=== PATIENT | female | born 1985 | race Caucasian/White ===

== ENCOUNTER 2021-10-07 15:37 | Inpatient (IN) ==
[2021-10-07] MEDS ORDERED: ONDANSETRON 4 MG/2 ML VIAL IV PRN ×2 (17:15→19:50)
[2021-10-07] MEDS ORDERED: ceFAZolin 2,000 MG/50 ML DUPLEX IV ONE (17:19)
[2021-10-07] MEDS ORDERED: FAMOTIDINE 20 MG/2 ML VIAL IV ONE (17:30)
[2021-10-07] MEDS ORDERED: LACTATED RINGERS 1,000 ML IV SCH ×2 (17:30→20:00)
[2021-10-07] MEDS ORDERED: CITRIC ACID/SODIUM CITRATE 30 ML UDCUP PO ONE (17:30)
[2021-10-07 17:49] LABS: Basophils # 0.1 10*3/uL (0.0-0.2); Basophils % 0.6 % (0.0-0.8); Eosinophils # 0.1 10*3/uL (0.0-0.87); Eosinophils % 1.1 % (0.00-10.9); Hematocrit 32.1 VOL% (35.7-47.0); Hemoglobin 9.8 GM/DL (12.0-16.0); Immature Granulocytes % 0.8 %; Immature Granulocytes Absolute 0.08 #; Lymphocytes # 1.8 10*3/uL (1.4-4.0); Lymphocytes % 18.7 % (21.3-54.2); Mean Corpuscular HGB Conc 30.5 GM/DL (32-36); Mean Corpuscular Volume 81.3 FL (87-102); Mean Platelet Volume 10.6 FL (9.6-12.0); Monocytes % 7.2 % (1.7-12.7); Neutrophils % 71.6 % (38.7-73.9); Platelet Count 240 T/CUMM (130-400); Red Blood Count 3.95 MC/CUMM (3.8-5.5); Red Cell Distribution Width 16.2 % (9.3-17.3); White Blood Count 9.7 T/CUMM (4-12)
[2021-10-07 18:18] LABS: Alanine Aminotransferase 23 U/L (13-56); Albumin 2.7 G/DL (3.4-5.0); Alkaline Phosphatase 160 U/L (45-117); Aspartate Amino Transferase 24 U/L (0-37); Bilirubin,Total < 0.39 MG/DL (0.20-1.00); Blood Urea Nitrogen 6 MG/DL (7-18); Calcium 8.4 MG/DL (8.5-10.1); Carbon Dioxide 26 MMOL/L (21-32); Estimated Glom Filtration Rate 132 ML/MIN; Glucose 71 MG/DL (74-106); Potassium 3.9 MMOL/L (3.5-5.1); Sodium 136 MMOL/L (136-145); Total Protein 6.9 G/DL (6.4-8.2)
[2021-10-07] MEDS ORDERED: BUPIVACAINE SPINAL 0.75% 2 ML AMP SPINAL ONE (18:42)
[2021-10-07] MEDS ORDERED: MIDAZOLAM 2 MG/2 ML VIAL ONE ×2 (19:01→19:06)
[2021-10-07] MEDS ORDERED: miSOPROStoL 200 MCG TABLET ONE (19:03)
[2021-10-07] MEDS ORDERED: TRANEXAMIC ACID 1,000 MG/10 ML VIAL ONE (19:03)
[2021-10-07] MEDS ORDERED: OXYTOCIN/LR 20 UNIT/1,000 ML BAG IV ONE ×2 (19:03→19:50)
[2021-10-07] MEDS ORDERED: SODIUM CHLORIDE 0.9% 0 ML IV ONE (19:03)
[2021-10-07] MEDS ORDERED: CARBOPROST TROMETHAMINE 250 MCG/ML AMP IM ONE (19:04)
[2021-10-07] MEDS ORDERED: METHYLERGONOVINE 0.2 MG/1 ML AMP ONE (19:04)
[2021-10-07] MEDS ORDERED: propofoL 200 MG/20 ML VIAL IV ONE (19:18)
[2021-10-07] MEDS ORDERED: ONDANSETRON 4 MG/2 ML VIAL ONE (19:18)
[2021-10-07] MEDS ORDERED: KETOROLAC 30 MG/1 ML VIAL ONE ×2 (19:18)
[2021-10-07 19:24] LABS: Cord Arterial Blood HCO3 22.2 MMOL/L
[2021-10-07 19:27] LABS: Cord Venous Blood HCO3 23.7 MMOL/L; Cord Venous Blood PCO2 52.1 MMHG; Cord Venous Blood PO2 17.6
[2021-10-07] MEDS ORDERED: RHO(D) IMMUNE GLOBULIN 300 MCG SYRINGE IM ONE (19:50)
[2021-10-07] MEDS ORDERED: ACETAMINOPHEN 325 MG TABLET PO PRN (19:50)
[2021-10-07] MEDS ORDERED: diphenhydrAMINE 50 MG/1 ML VIAL IV PRN (20:03)
[2021-10-07] MEDS ORDERED: HYDROmorphone 1 MG/1 ML SYRINGE IV PRN (20:03)
[2021-10-07] MEDS ORDERED: hydrOXYzine HCL 25 MG/1 ML VIAL IM PRN (20:03)
[2021-10-07] MEDS ORDERED: PROMETHAZINE 25 MG/1 ML VIAL IM PRN (20:05)
[2021-10-07] MEDS ORDERED: ROPIVACAINE 0.5% 30 ML VIAL ONE (20:31)
[2021-10-07] MEDS ORDERED: DEXAMETHASONE 4 MG/1 ML VIAL ONE (20:32)
[2021-10-07 21:39] LABS: Urine Appearance Clear (Clear); Urine Color Yellow (Yellow)
[2021-10-07 21:40] LABS: Bilirubin,Urine Negative (Negative); Blood, Urine Negative (Negative); Glucose,Urine (UA) Negative (Negative); Ketones,Urine 80 mg/dL (Negative); Nitrite,Urine Negative (Negative); Protein,Urine Negative (Negative); Urine Specific Gravity 1.025 (1.001-1.035); Urine Urobilinogen 0.2 eU/dL (<2.0)
[2021-10-07 21:44] LABS: Bacteria,Urine Occasional /HPF (Few); Mucus,Urine Occasional /LPF (Occasional); RBC,Urine 1 /HPF (0-4); Squamous Epithelial Cell,Urine Occasional /HPF (0-10)
[2021-10-07 21:59] LABS: Barbiturates Screen,Urine Negative (Negative); Benzodiazepines Screen,Urine Negative (Negative); Cannabinoid Screen,Urine Negative (Negative); Opiate Screen,Urine Negative (Negative); Phencyclidine Screen,Urine Negative (Negative)
[2021-10-07] MEDS: ACETAMINOPHEN 500 MG TABLET PO SCH (22:37)
[2021-10-08] MEDS: KETOROLAC 30 MG/1 ML VIAL IV SCH ×2 (01:44→09:44)
[2021-10-08] MEDS: DOCUSATE SODIUM 100 MG CAPSULE PO SCH ×3 (02:32→21:30)
[2021-10-08 04:35] LABS: Basophils % 0.2 % (0.0-0.8); Hematocrit 31.5 VOL% (35.7-47.0); Hemoglobin 9.8 GM/DL (12.0-16.0); Immature Granulocytes % 0.7 %; Immature Granulocytes Absolute 0.11 #; Lymphocytes # 0.9 10*3/uL (1.4-4.0); Lymphocytes % 5.7 % (21.3-54.2); Mean Corpuscular HGB Conc 31.1 GM/DL (32-36); Mean Corpuscular Volume 80.8 FL (87-102); Monocytes % 2.9 % (1.7-12.7); Neutrophils % 90.5 % (38.7-73.9); Platelet Count 261 T/CUMM (130-400); Red Cell Distribution Width 16.4 % (9.3-17.3); White Blood Count 15.5 T/CUMM (4-12)
[2021-10-08] MEDS: oxyCODONE/ACETAMINOPHEN 5-325 MG TABLET PO PRN ×4 (06:09→17:37)
[2021-10-08] MEDS: ACETAMINOPHEN 500 MG TABLET PO SCH (06:55)
[2021-10-08] MEDS: IBUPROFEN 800 MG TABLET PO PRN ×2 (08:20→15:53)
[2021-10-08] MEDS: SIMETHICONE CHEW 80 MG TABLET PO PRN (09:43)
[2021-10-08] MEDS: MAGNESIUM HYDROXIDE SUSP 30 ML UDCUP PO PRN ×2 (09:43→21:30)
[2021-10-08] MEDS: MULTIVITAMIN (PRENATAL) TABLET PO SCH (09:43)
[2021-10-08] MEDS ORDERED: oxyCODONE/ACETAMINOPHEN 5-325 MG TABLET PO PRN (20:35)
[2021-10-09] MEDS: IBUPROFEN 800 MG TABLET PO PRN ×3 (00:20→20:31)
[2021-10-09] MEDS: oxyCODONE/ACETAMINOPHEN 5-325 MG TABLET PO PRN ×5 (00:20→22:24)
[2021-10-09] MEDS: MULTIVITAMIN (PRENATAL) TABLET PO SCH (07:40)
[2021-10-09] MEDS: DOCUSATE SODIUM 100 MG CAPSULE PO SCH ×2 (07:40→20:31)
[2021-10-09] MEDS ORDERED: KETOROLAC 10 MG TABLET PO PRN (15:01)
[2021-10-09] MEDS: SIMETHICONE CHEW 80 MG TABLET PO PRN (16:28)
[2021-10-09] MEDS: MAGNESIUM HYDROXIDE SUSP 30 ML UDCUP PO PRN (16:28)
[2021-10-09] MEDS ORDERED: INFLUENZA VIRUS VACCINE 0.5 ML SYRINGE IM ONE (18:07)
[2021-10-10] MEDS: IBUPROFEN 800 MG TABLET PO PRN ×3 (02:11→13:15)
[2021-10-10] MEDS: MAGNESIUM HYDROXIDE SUSP 30 ML UDCUP PO PRN (02:12)
[2021-10-10] MEDS: SIMETHICONE CHEW 80 MG TABLET PO PRN ×2 (02:12→07:59)
[2021-10-10] MEDS: oxyCODONE/ACETAMINOPHEN 5-325 MG TABLET PO PRN ×3 (03:49→15:11)
[2021-10-10] MEDS ORDERED: FUROSEMIDE 40 MG/4 ML VIAL IV ONE (07:29)
[2021-10-10] MEDS: DOCUSATE SODIUM 100 MG CAPSULE PO SCH (07:59)
[2021-10-10] MEDS: MULTIVITAMIN (PRENATAL) TABLET PO SCH (07:59)
[2021-10-10 08:45] VITALS: BP 136/81
[2021-10-10] MEDS ORDERED: MAGNESIUM CITRATE 300 ML BOTTLE PO ONE (15:13)
[2021-10-10] MEDS ORDERED: FUROSEMIDE 20 MG TABLET PO ONE (16:00)
== END 2021-10-10 18:15 | disposition home or self-care (01) | DRG 788 ==
LOC: N.LDOUT 15:37 → N.LD 15:40 → N.OB 23:01
PROVIDERS: ADMIT Obstetrics & Gynecology; ATTEND Obstetrics & Gynecology
PROC: LDCSECT (ICD-10-PCS; 2021-10-07 18:30)